=== PATIENT | female | born 1990 | race Caucasian/White ===

== ENCOUNTER 2017-01-24 11:35 | Inpatient (IN) ==
[2017-01-24 12:47] LABS: Amorphous Crystals,Urine Occasional /HPF (Few); Apearance,Urine Slightly Hazy (Clear); Bacteria,Urine Occasional /HPF (Few); Bilirubin,Urine Negative (Negative); Blood, Urine Negative (Negative); Glucose,Urine (UA) Negative (Negative); Ketones,Urine Negative (Negative); Mucus,Urine Occasional /LPF (Occasional); Nitrite,Urine Negative (Negative); Protein,Urine Negative; RBC,Urine 1 /HPF (0-4); Squamous Epithelial Cell,Urine Occasional /HPF (0-10); Urine Color Amber (Yellow); Urine Specific Gravity 1.005 (1.001-1.035); Urine Urobilinogen < 2.0 EU/DL (0.2-1.0); WBC,Urine <1 /HPF (0-6)
[2017-01-24] MEDS: LACTATED RINGERS 1,000 ML IV SCH ×2 (14:30→19:10)
[2017-01-24] MEDS ORDERED: ONDANSETRON 4 MG/2 ML VIAL IV PRN (14:40)
[2017-01-24] MEDS ORDERED: BUTORPHANOL 2 MG/ML VIAL IV PRN (14:40)
[2017-01-24] MEDS ORDERED: MEPERIDINE 50 MG/1 ML VIAL IV PRN (14:40)
[2017-01-24] MEDS ORDERED: OXYTOCIN/LR 20 UNIT/1,000 ML BAG IV SCH (15:00)
[2017-01-24] MEDS ORDERED: LACTATED RINGERS 1,000 ML IV ONE (15:17)
[2017-01-24] MEDS ORDERED: ePHEDrine 50 MG/ML AMP IV PRN (15:17)
[2017-01-24] MEDS ORDERED: PROMETHAZINE 25 MG/1 ML VIAL IM ONE (15:17)
[2017-01-24] MEDS ORDERED: hydrOXYzine HCL 25 MG/1 ML VIAL IM PRN (15:17)
[2017-01-24] MEDS ORDERED: CITRIC ACID/SODIUM CITRATE 30 ML UDCUP PO ONE (15:17)
[2017-01-24] MEDS ORDERED: diphenhydrAMINE 50 MG/1 ML VIAL IV PRN ×2 (15:17)
[2017-01-24] MEDS ORDERED: FAMOTIDINE 20 MG/2 ML VIAL IV ONE (15:17)
[2017-01-24] MEDS ORDERED: fentaNYL 2 MCG/ROPIV 0.2% EPID 150 ML EPIDURAL SCH (15:17)
[2017-01-24 15:31] LABS: Basophils % 0.2 % (0.0-0.8); Eosinophils # 0.3 10*3/uL (0.0-0.87); Eosinophils % 1.9 % (0.00-10.9); Hematocrit 35.6 VOL% (35.7-47.0); Hemoglobin 12.4 GM/DL (12.0-16.0); Immature Granulocytes % 0.9 %; Immature Granulocytes Absolute 0.13 #; Lymphocytes # 2.7 10*3/uL (1.4-4.0); Lymphocytes % 18.9 % (21.3-54.2); Mean Corpuscular HGB Conc 34.8 GM/DL (32-36); Mean Corpuscular Hemoglobin 31 PG (27-34); Mean Corpuscular Volume 87.9 FL (87-102); Mean Platelet Volume 9.9 FL (9.6-12.0); Monocytes # 0.7 10*3/uL (0.11-0.8); Monocytes % 5.3 % (1.7-12.7); Neutrophils # 10.3 10*3/uL (1.4-7.4); Neutrophils % 72.8 % (38.7-73.9); Platelet Count 230 T/CUMM (130-400); Red Blood Count 4.05 MC/CUMM (3.8-5.5); Red Cell Distribution Width 13.2 % (9.3-17.3); White Blood Count 14.1 T/CUMM (4-12)
[2017-01-24 15:51] LABS: Alanine Aminotransferase 30 U/L (13-56); Alkaline Phosphatase 171 U/L (45-117); Aspartate Amino Transferase 29 U/L (0-37); Bilirubin,Total < 0.39 MG/DL (0.2-1.0); Blood Urea Nitrogen 6 MG/DL (7-18); Calcium 9.7 MG/DL (8.5-10.1); Glucose 82 MG/DL (74-106); Osmolality,Calculated 269.8 MOS/KG (273-304); Potassium 3.7 MMOL/L (3.5-5.1); Sodium 137 MMOL/L (136-145); Total Protein 7.3 G/DL (6.4-8.3); Uric Acid 5.9 MG/DL (2.6-6.0)
[2017-01-24 17:48] LABS: Apearance,Urine CLEAR (Clear); Bacteria,Urine Occasional /HPF (Few); Bilirubin,Urine Negative (Negative); Blood, Urine Negative (Negative); Glucose,Urine (UA) Negative (Negative); Ketones,Urine 20 mg/dL (Negative); Mucus,Urine Occasional /LPF (Occasional); Nitrite,Urine Negative (Negative); Protein,Urine Negative; RBC,Urine 2 /HPF (0-4); Urine Color Straw (Yellow); Urine Specific Gravity 1.004 (1.001-1.035); Urine Urobilinogen < 2.0 EU/DL (0.2-1.0); WBC,Urine 1 /HPF (0-6)
[2017-01-25] MEDS: LACTATED RINGERS 1,000 ML IV SCH (04:01)
--- NOTE | 2017-01-25 10:21 | OB/GYN History & Physical ---
History of Present Illness Chief complaint: In for complaints of active labor History of present illness: Ms. Terry is a 26 year old female 4 para 2 living 2 AB 1. [place] 2016 estimated gestational age of 38 weeks who presented to the labor department in active labor. The risk and benefits were thoroughly discussed with this patient significant other, plan of care was discussed with Dr. Phan and all parties are in agreement with plan. The patient received her care through the [facility] and she received routine care and her course was uneventful. The patient has had 2 previous vaginal deliveries and the largest weighed 8 pounds and 9 ounces and she reported no complications with either of her pregnancies. labs: She is O+, rubella is immune, RPR is nonreactive, hepatitis B negative, HIV negative , GBS culture negative. Review of systems is negative with exception of above. Home Medications Medication Instructions Recorded Confirmed Type Pnv No.95/Ferrous Fum/Folic AC 1 each PO DAILY 10/24/16 01/24/17 History [ Tablet] Allergies Allergy/AdvReac Type Severity Reaction Status Date / Time No Known Allergies Allergy Verified 10/24/16 17:26 12 point system: reviewed and no additional remarkable complaints except as stated Medical,Surgical,& Family Hx - Medical History Medical History: noncontributory - Surgical History Surgical History: noncontributory - Family History Family History: Reports;: Family Diabetes (MGF PGF), Family Heart Disease, Family Hypertension (MGF) Denies;: Additional Family History - Social History Smoking Status: Never smoker Frequency of Alcohol Use: None Type of Drug Use: None Marital Status: Single Lives With:: Significant Other Functional capacity: independent ambulation Exam [employer] - Constitutional Vitals: Vital Signs Temp Pulse Resp BP 01/25/17 03:48 79.8 F L 01/25/17 00:00 97.8 F 01/24/17 19:40 97.6 F 01/24/17 16:00 113 H 20 116/55 01/24/17 12:00 98.4 F 95 H 20 137/85 General appearance: mild distress - Antepartum / Post Post Exam Cervix - Dilatation: 5 cm Effacement: 80% Station: -2 Rupture: Intact Presentation: Vertex Heart Rate: 140-150s Breast: bilateral: normal Abdomen obstetrics: Present: bowel sounds normal Vagina: Present: normal moisture, discharge (Bloody show) Uterus exam: Present: normal size, enlarged Anus/Rectum: Present: normal perianal skin - Respiratory Respiratory exam: Present: clear to auscultation bilaterally - Cardiovascular Cardiovascular exam: Present: regular rate and rhythm - GI/Abdominal GI/Abdominal exam: Present: normal bowel sounds, soft - Extremities Exam Extremities exam: Present: normal inspection - Neurological Exam Neurological exam: Present: alert, oriented X3 - Psychiatric Psychiatric exam: Present: normal affect, normal mood - Skin Skin exam: Present: normal color, warm Assessment and Plan (1) Active labor Status: Acute Assessment and plan: Admit IV fluids IV Pitocin per protocol Artificial rupture membranes when appropriate Internal monitors if indicated Epidural anesthesia if desired Anticipate Current Visit: Yes Results - Labs CBC & BMP: 01/24/17 15:13 01/24/17 15:13
[2017-01-25] MEDS ORDERED: miSOPROStol 200 MCG TABLET ONE (10:47)
[2017-01-25 11:21] LABS: Cord Arterial Blood HCO3 20.2 MMOL/L
--- NOTE | 2017-01-25 11:22 | Event Note ---
HPI: Ms. Terry presented to the labor department in active labor. The risk and benefits were thoroughly discussed with this patient and significant other, plan of care was discussed with Dr. Phan. The patient was admitted for augmentation of labor. Stage I: The patient was admitted and she received IV fluids and IV Pitocin per protocol she progressed in labor with a CAT 1 tracing. She received an epidural for pain control. When she was 6 cm dilated artificial rupture membranes was performed with kacey fluid noted and the patient progressed rapidly after this. Stage II: The patient was complete complain of pressure and strong desire to push. She pushed for approximately 4 times after which time the infant's head was delivered and the mouth nose suctioned on the perineum. The remainder the was delivered at 1104 a viable male infant was noted. Apgars were 8 at 1 minute and 9 at 5 minutes. The infant was placed on the mom's abdomen for skin to skin bonding. weight was 8 lbs. 14 oz. A cord pH was obtained and sent to lab. Stage III: A spontaneous delivery of a Canseco placenta with three-vessel cord noted. The placenta was further examined. Grossly intact. The vagina cervix inspected with no tears or lacerations noted. Estimated blood loss was approximately 150 cc. At the time of dictation mother and baby are both in stable condition.
[2017-01-25 11:23] LABS: Cord Venous Blood HCO3 23.6 MMOL/L; Cord Venous Blood PCO2 37.5 MMHG
[2017-01-25] MEDS ORDERED: ACETAMINOPHEN/CODEINE 300-30 MG TABLET PO PRN (11:23)
[2017-01-25] MEDS ORDERED: oxyCODONE/ACETAMINOPHEN 5-325 MG TABLET PO PRN ×2 (13:42)
[2017-01-25] MEDS ORDERED: BENZOCAINE 20%/MENTHOL 0.5% SPRAY 56 GM CAN TOP PRN (13:42)
[2017-01-25] MEDS ORDERED: ACETAMINOPHEN 325 MG TABLET PO PRN (13:42)
[2017-01-25] MEDS ORDERED: WITCH HAZEL PADS 100/JAR TOP PRN (13:42)
[2017-01-25] MEDS ORDERED: BISACODYL 10 MG SUPP RECTAL PRN (13:42)
[2017-01-25] MEDS ORDERED: IBUPROFEN 800 MG TABLET PO PRN (13:42)
[2017-01-25] MEDS ORDERED: DIPH/TET/ACEL PERT BOOSTER VACCINE 0.5 ML VIAL IM ONE (13:42)
[2017-01-25] MEDS ORDERED: HYDROCORTISONE 2.5% RECTAL CREAM 30 GM TUBE TOP PRN (13:42)
[2017-01-25] MEDS ORDERED: RHO(D) IMMUNE GLOBULIN 300 MCG SYRINGE IM ONE (13:42)
[2017-01-25] MEDS ORDERED: LANOLIN 50% CREAM 0.3 OZ TUBE TOP PRN (13:42)
[2017-01-25] MEDS ORDERED: MEASLES/MUMPS/RUBELLA VACCINE 0.5 ML VIAL SUBCUT ONE (13:42)
[2017-01-25] MEDS: DOCUSATE SODIUM 100 MG CAPSULE PO SCH (22:05)
--- NOTE | 2017-01-26 03:44 | Anesthesia Post-Op ---
Anesthesia Post OP - Post Ansesthetic Evaluation Patient seen in post op: Yes Resp: within normal limits CV: within normal limits Mental: within normal limits Temp: within normal limits [id number]: within normal limits Nausea and Vomiting: within normal limits Pain: within normal limits
[2017-01-26 05:36] LABS: Basophils # 0.1 10*3/uL (0.0-0.2); Basophils % 0.3 % (0.0-0.8); Eosinophils # 0.3 10*3/uL (0.0-0.87); Eosinophils % 2.1 % (0.00-10.9); Hematocrit 31.6 VOL% (35.7-47.0); Hemoglobin 10.8 GM/DL (12.0-16.0); Immature Granulocytes % 0.7 %; Immature Granulocytes Absolute 0.11 #; Lymphocytes # 3.2 10*3/uL (1.4-4.0); Lymphocytes % 20.6 % (21.3-54.2); Mean Corpuscular HGB Conc 34.2 GM/DL (32-36); Mean Corpuscular Hemoglobin 31 PG (27-34); Mean Corpuscular Volume 90.3 FL (87-102); Mean Platelet Volume 9.5 FL (9.6-12.0); Monocytes % 6.6 % (1.7-12.7); Neutrophils # 10.7 10*3/uL (1.4-7.4); Neutrophils % 69.7 % (38.7-73.9); Platelet Count 202 T/CUMM (130-400); Red Cell Distribution Width 13.3 % (9.3-17.3); White Blood Count 15.4 T/CUMM (4-12)
[2017-01-26] MEDS: DOCUSATE SODIUM 100 MG CAPSULE PO SCH ×2 (09:05→21:27)
--- NOTE | 2017-01-26 13:15 | Progress Note ---
Family Medicine PN Sub Interval history: day #1 Status post vaginal Lungs are clear, cardiac exam benign, abdomen soft, uterus is nice and firm. Status post vaginal Continue with present management. Exam (Progress Note) - Constitutional Vitals: Period Temp Pulse Resp BP Sys/Watts Pulse Ox Last 24 Hr 97.0 F-98.0 F 62-95 18-20 82-120/49-81 98-99 Results - Labs CBC & BMP: 01/26/17 05:26 01/24/17 15:13 Quality Measures - VTE Contraindication to Pharmacological VTE Prophylaxis: Clinical assessment deems Pt at low risk, no prophalaxis needed
[2017-01-27 08:19] VITALS: BP 117/68
[2017-01-27] MEDS: DOCUSATE SODIUM 100 MG CAPSULE PO SCH (08:53)
--- NOTE | 2017-01-27 09:44 | Discharge Summary ---
Hospital Course - Hospital Course Hospital Course: Ms. Terry presented to the labor department in active labor. She subsequently delivered a viable infant with no complications. She has followed a normal course and she has done well. Her bleeding is minimal with no odor. Her perineum is intact with no edema. Her vital signs and lab values are stable. Her fundus is firm and midline. She is bonding well with her infant. Contraception options has been discussed with this patient and she is unsure of a method at this time. She will be discharged home prescriptions for pain and follow-up appointment in our office. Diagnosis - Discharge Diagnosis (1) Active labor Status: Acute Specialty Discharge - Follow Up or Referrals Follow up with: Milan Phan MD [Physician] - (Follow-up in 6 weeks.) Discharge Plan - Discharge Data Disposition: Disch To Home/Self Care Condition at Discharge: Stable Discharge Diet: advance to your usual diet, regular diet Activity: resume usual activities as tolerated Hygiene: no restrictions Weight Bearing at Discharge: weight bear as tolerated Driving: no restrictions Contact your physician if you experience:: fever over 101, Shortness of breath, pain uncontrolled by pain medications - Discharge Medications New Acetamin/Codeine 300-30 Tab [Tylenol/Codeine #3] 2 tablet PO Q4H PRN #30 tablet PRN Reason: Pain Mild (1-3) Ibuprofen Tab [Motrin Tab] 800 mg PO Q6H PRN #30 tablet PRN Reason: Pain Moderate (4-7) No Action Pnv No.95/Ferrous Fum/Folic AC [ Tablet] 1 each PO DAILY - Follow Up or Referral Follow Up: Milan Phan MD [Physician] - - Forms/Instructions Instructions: Depression (GEN), Perineal Care (DC), Vaginal Delivery (DC), Bleeding (DC) Exam - Constitutional Vitals: Period Temp Pulse Resp BP Sys/Watts Pulse Ox Last 24 Hr 97.1 F-97.9 F 62-72 18-20 82-123/49-83 98-100 General appearance: no acute distress - Respiratory Respiratory exam: Present: clear to auscultation bilaterally - Cardiovascular Cardiovascular exam: Present: regular rate and rhythm - GI/Abdominal GI/Abdominal exam: Present: normal bowel sounds - Extremities Exam Extremities exam: Present: normal inspection - Back Exam Back exam: Present: normal inspection - Neurological Exam Neurological exam: Present: alert, oriented X3 - Psychiatric Psychiatric exam: Present: normal affect, normal mood - Skin Skin exam: Present: normal color, warm DS: Provider Date of admission: 01/24/17 14:40 Primary care physician: . No PCP Attending physician on admission: Milan Phan MD Consults: 01/25/17 13:42 Consult to Informaticist [CONS] Routine Consult Informaticist: Breast Feeding Discharging clinician: Genet Saba CNM Expected date of discharge: 01/27/17
== END 2017-01-27 12:20 | disposition home or self-care (01) | DRG 775 ==
LOC: N.LDOUT 11:35 → N.LD 11:36 → N.OB 01-25 13:10
PROVIDERS: ADMIT Obstetrics & Gynecology; ATTEND Obstetrics & Gynecology